=== PATIENT | female | born 1985 | race Caucasian/White ===

== ENCOUNTER 2017-02-01 16:23 | Outpatient (CLI) | payer BC ==
--- NOTE | 2017-02-01 19:25 | RAD ---
LEFT HIP TWO VIEWS 02/01/2017 FINDINGS: No fracture, joint space narrowing, or arthritic is seen to explain pain. The articular surfaces ar e smooth. IMPRESSION: No significant finding. POS: HOME
== END 2017-02-01 16:24 | disposition home or self-care (01) ==
LOC: BURRAD 16:23
PROVIDERS: ATTEND Family Medicine
DX: M25.552 Pain in left hip (principal)

== ENCOUNTER 2017-09-08 09:01 | Outpatient (CLI) | payer OTHER ==
--- NOTE | 2017-09-08 20:46 | ULT ---
ABDOMINAL ULTRASOUND 09/08/17 Ultrasonography of the abdomen was performed for evaluation of right upper quadrant pain. The liver was upper normal in size, measuring 15.6 cm in oblique sagittal length. It appears normal i nternally with no dilated ducts, masses, or other pathology. Portal venous flow was appropriately tow ards the liver. The gallbladder contained no signs of stones or wall thickening. There might be a tra ce of sludge within it. The common bile duct was a normal 3 mm in caliber. The pancreas and spleen were unremarkable. The aorta and inferior vena cava were unremarkable. The r ight kidney was 10.3 cm long and the left kidney was 11.9 cm. No mass or hydronephrosis was seen in e ither. IMPRESSION: No acute abdominal finding. POS: HOME
--- NOTE | 2017-09-08 21:06 | ULT ---
PELVIC UTLRASOUND 09/08/17 Images were initially obtained with the abdominal transducer. Because of difficulty seeing well, the exam was continued with an endovaginal probe. The uterus has been surgically removed. The ovaries remain. The right ovary measures 1.9 x 1.6 x 1.3 cm. Blood flow was present in this ovary. In general, the right ovary appears normal. There were a co uple of images that appeared to contain an irregular cyst but looking at all other images, they appea r to be mislabeled and were actually from the left ovary. The left ovary is 2.4 cm long and definitely contains an irregular cyst that measures 1.9 x 1.0 x 1.8 cm. There is probably some debris internally within it. It probably bears followup after a cycle or two. There is no free fluid in the pelvis. IMPRESSION: Irregular 1.9 cm cyst, left ovary, probably with some internal debris. A followup scan within a few c ycles is recommended to make sure that this resolves. Code T POS: HOME
== END 2017-09-08 09:02 | disposition home or self-care (01) ==
LOC: BURULT 09:01
PROVIDERS: ATTEND Physician Assistant
DX: R10.11 Right upper quadrant pain (principal); N83.202 Unspecified ovarian cyst, left side
CPT/HCPCS: 76700; 76856

== ENCOUNTER 2017-11-09 13:19 | Outpatient (CLI) | payer OTHER ==
--- NOTE | 2017-11-09 15:37 | RAD ---
LEFT ANKLE THREE VIEWS: History: Sprain. Pain. Comparison: None. FINDINGS: There is bilateral soft tissue swelling. Joint spaces are preserved. No fracture. IMPRESSION: Soft tissue swelling without evidence of fracture. POS: [facility]
== END 2017-11-09 13:20 | disposition home or self-care (01) ==
LOC: BURRAD 13:19
PROVIDERS: ATTEND Physician Assistant
DX: S93.402A Sprain of unspecified ligament of left ankle, initial encounter (principal); M79.89 Other specified soft tissue disorders

== ENCOUNTER 2017-12-22 11:25 | Outpatient (CLI) | payer OTHER ==
--- NOTE | 2017-12-22 21:28 | ULT ---
PELVIC ULTRASOUND WITH ENDOVAGINAL IMAGING 12/22/17 Ultrasonography of the pelvis was performed and compared with the prior study dated 09/08/17. The uterus has been surgically removed. The right ovary measures 2.4 cm in length and contains a 1.6 cm cyst within it. It is better defined today, not as irregular, and less of a concern than before. T he left ovary measures 2.1 cm in length. It has a 1.1 cm cyst that is also somewhat smaller and shorty r defined today than before. Blood flow was present in each ovary. There was no substantial free flui d in the cul-de-sac. IMPRESSION: 1. Status post hysterectomy. 2. Bilateral ovarian cysts which are slightly smaller and better defined than on the prior study . The positive meter changes records clerk time makes the probability of them being benign quite high. POS: HOME
== END 2017-12-22 11:26 | disposition home or self-care (01) ==
LOC: BURULT 11:25
PROVIDERS: ATTEND Physician Assistant
DX: R93.8 Abnormal findings on diagnostic imaging of other specified body structures (principal); N83.202 Unspecified ovarian cyst, left side; Z90.710 Acquired absence of both cervix and uterus
CPT/HCPCS: 76856

== ENCOUNTER 2019-05-22 17:17 | Outpatient (CLI) | payer BC ==
--- NOTE | 2019-05-22 18:39 | RAD ---
LEFT HIP THREE VIEWS: No fracture was seen. The joint space appears normal. A marker points to an area of pain around the left iliac crest, but no bony abnormality was seen there. IMPRESSION: No acute findings POS: HOME
--- NOTE | 2019-05-22 18:40 | RAD ---
LEFT ANKLE THREE VIEWS: 05/22/2019 FINDINGS: No fracture, joint space abnormality, or joint space narrowing is seen. All bones and relationships s eem normal. IMPRESSION: No acute findings. POS: HOME
--- NOTE | 2019-05-22 18:42 | RAD ---
LEFT FOOT THREE VIEWS: 05/22/2019 FINDINGS: No fracture or periosteal reaction is seen. All bones appear normal. IMPRESSION: No significant finding. POS: HOME
== END 2019-05-22 17:18 | disposition home or self-care (01) ==
LOC: BURRAD 17:17
PROVIDERS: ATTEND Physician Assistant
DX: M79.672 Pain in left foot (principal); M25.552 Pain in left hip

== ENCOUNTER 2021-06-05 17:19 | Outpatient (CLI) | payer BC | END 2021-06-05 17:20 | disposition home or self-care (01) | LOC: BURRAD 17:19 | PROVIDERS: ATTEND Physician Assistant | DX: M25.562 Pain in left knee (principal); M25.572 Pain in left ankle and joints of left foot ==

== ENCOUNTER 2022-09-22 13:48 | Emergency (ER) | payer BC ==
[~2022-09-22 13:48] MED LIST: Iopamidol 370 76% 100 ML VIAL ONE
[2022-09-22] MEDS ORDERED: Ondansetron PF 4 MG/2 ML Vial ONE (14:04)
[2022-09-22 14:16] LABS: #Basophils 0.1 thou/uL (0.0-0.2); #Lymphocytes 0.8 thou/uL (1.20-3.40); #Monocytes 0.4 thou/uL (0.11-0.59); #Neutrophils 3.9 thou/uL (1.40-6.50); %Lymphocytes 15.3 % (21.0-51.0); %Monocytes 7.9 % (0.0-10.0); %Neutrophils 74.8 % (42.0-75.0); Hemoglobin 16.9 g/dL (12.0-16.0); Mean Corpuscular HGB CONC 34.7 g/dL (32.0-36.0); Mean Corpuscular Hemoglobin 31.6 pg (27.0-31.0); Mean Platelet Volume 8.2 fL (7.4-10.4); Platelet Count 188 10x3/uL (130-400); RBC Distribution Width 11.9 % (11.5-14.5); Red Blood Cell (RBC) Count 5.33 mill/uL (4.20-5.40); White Blood Cell (WBC) Count 5.3 10x3/uL (4.8-10.8)
[2022-09-22 14:33] LABS: ALT (SGPT) 23 U/L (8-55); AST (SGOT) 26 U/L (5-34); Albumin 4.3 g/dL (3.5-5.0); Alkaline Phosphatase 55 U/L (40-110); Anion Gap 15 mmol/L (10-20); BUN (Urea Nitrogen) 9 mg/dL (7.0-18.7); Bilirubin, Total 0.3 mg/dL (0.2-1.2); Calc. Creatinine Clearance 0 mL/min (70-130); Calcium 8.8 mg/dL (7.8-10.44); Carbon Dioxide 24 mmol/L (22-29); Chloride 103 mmol/L (98-107); Estimated GFR 88; Globulin 2.7 g/dL (2.4-3.5); Glucose 126 mg/dL (70-105); Potassium 3.5 mmol/L (3.5-5.1); Sodium 138 mmol/L (136-145)
[2022-09-22 14:40] LABS: BHCG - Serum Negative (NEGATIVE); Pregs Control Background? CLEAR/WHITE (CLR/WHITE); Pregs Control Bar Appear? YES (CONTROL BAR)
[2022-09-22] MEDS ORDERED: Morphine 4 MG/ML VIAL ONE (15:19)
[2022-09-22] MEDS ORDERED: cefTRIAXone\\ROCEPHIN 2 GM VIAL ONE (15:48)
[2022-09-22] MEDS ORDERED: Sodium Chloride 0.9% 100 ML ONE (15:48)
== END 2022-09-22 16:36 | disposition home or self-care (01) ==
LOC: BURERS 13:48
DX: K52.9 Noninfective gastroenteritis and colitis, unspecified (principal); Z87.891 Personal history of nicotine dependence
CPT/HCPCS: 74177; 80053; 84703; 85025; 96361; 96365; 96375; J0696; J2270; J2405; J3490; Q9967